=== PATIENT | female | born 1960 | race Caucasian/White ===

== ENCOUNTER 2017-07-23 13:53 | Inpatient (IN) | payer OTHER ==
[~2017-07-23] VITALS: Ht 175.3 cm; Wt 143.6 kg
--- NOTE | ~2017-07-23 | 2DMMODE ---
[facility] [address] [place] [address] 2 D/M-MODE ECHOCARDIOGRAM Name: RICOIKE Lopez Room #: 210-P [facility] IN ..#: [id number] Admission: 07/23/17 Attend Phys: James Orosco, Discharge: Date of : 62 Date of Service: 07/26/17 1311 Report #: [id number] THIS REPORT FOR: //name// APPROVED REPORT Study performed: 07/26/2017 09:19:27 EXAM: Comprehensive 2D, Doppler, and color-flow Echocardiogram Patient Location: Echo lab Room #: 210 Status: routine BSA: 2.51 HR: 75 bpm BP: 88/56 mmHg Other Information Study Quality: Adequate Indications Congestive Heart Failure Dyspnea 2D Dimensions RVDd: 46.32 mm LVEF(%): 22.32 (>50%) IVSd: 9.72 (7-11mm) LVOT Diam: 19.78 (18-24mm) LVDd: 65.34 mm PWd: 12.66 (7-11mm) Ascending Ao: 34.67 (22-36mm) LVDs: 58.49 (25-40mm) Aortic Root: 31.45 mm IVC: 21.00 mm English's LVEF: 22.32 % Volumes Left Atrial Volume (Systole) Single Plane 4CH: 83.98 mL Single Plane 2CH: 97.54 mL LA ESV Index: 40.00 mL/m2 Aortic Valve AoV Peak Juan.: 1.20 m/s AO Peak Gr.: 5.71 mmHg LVOT Max P.62 mmHg LVOT Max V: 1.07 m/s MARIE Vmax: 2.76 cm2 Mitral Valve E/A Ratio: 0.9 MV Decel. Time: 202.21 ms [facility] [place] [address] 2 D/M-MODE ECHOCARDIOGRAM Name: IKE GÓMEZ Room #: 210-[facility] IN .R.#: [id number] Admission: 07/23/17 Attend Phys: James Orosco, Discharge: Date of : 62 Date of Service: 07/26/17 1311 Report #: [id number] MV E Max Juan.: 1.03 m/s MV A Juan.: 1.14 m/s MV PHT: 58.64 ms IVRT: 55.36 ms Pulmonary Valve PV Peak Juan.: 0.60 m/s PV Peak Gr.: 1.43 mmHg Pulmonary Vein P Vein S: 0.39 m/s P Vein A: 0.30 m/s P Vein D: 0.47 m/s P Vein A Dur.: 124.6 msec P Vein S/D Ratio: 0.83 Tricuspid Valve TR Peak Juan.: 2.70 m/s TR Peak Gr.: 29.27 mmHg PA Pressure: 39.00 mmHg Left Ventricle Left ventricle is dilated. Mild concentric left ventricular hypertrophy. Left ventricular ejection fraction is severely decreased. LVEF is 30%. Grade I - abnormal relaxation pattern. Right Ventricle Right ventricle is dilated. Right ventricular systolic function is grossly normal. Atria Left atrium is dilated. Right atrium is dilated. Aortic Valve The aortic valve is normal in structure. No aortic regurgitation is present. There is no aortic valvular stenosis. Mitral Valve The mitral valve is normal in structure. Mild to moderate mitral regurgitation. No evidence of mitral valve stenosis. Tricuspid Valve The tricuspid valve is normal in structure. There is mild tricuspid regurgitation.Estimated PAP 40 mmHg. There is mild pulmonary hypertension. Pulmonic Valve The pulmonary valve is normal in structure. There is no pulmonic valvular regurgitation. [address] [address] 2 D/M-MODE ECHOCARDIOGRAM Name: IKE GÓMEZ Room #: 210-P [facility] IN .#: [id number] Admission: 07/23/17 Attend Phys: James Orosco, Discharge: Date of : 62 Date of Service: 07/26/17 1311 Report #: [id number] Great Vessels The aortic root is normal in size. IVC is dilated and collapses >50% with inspiration. Pericardium There is no pericardial effusion. <Conclusion> Left ventricular ejection fraction is severely decreased. LVEF is 30%. Grade I diastolic dysfunction Both atria are dilated. The aortic valve is normal in structure. No aortic regurgitation or stenosis The mitral valve is normal in structure. Mild to moderate mitral regurgitation. There is mild tricuspid regurgitation. Estimated PAP 40 mmHg. No pericardial effusion <ELECTRONICALLY SIGNED> By: Denton Beckford MD, FACC 07/26/171310 10 10 Denton Beckford MD, FACC /INF
--- NOTE | ~2017-07-23 | HC ---
[facility] [place] [address] CONSULTATION Name: IKE GÓMEZ Room #: 210-P ADM IN .R.#: [id number] Admission: 07/23/17 Attend Phys: James Orosco MD Discharge: Date of : 62 Report #: [id number] THIS REPORT FOR: //name// CC: James Orosco [facility] physician/PCP DATE OF SERVICE: 07/23/2017 HISTORY OF PRESENT ILLNESS: The patient is a 57-year-old female who was admitted, transferred from [facility] Emergency Room where she had progressive dyspnea and shortness of breath. She has been treated for what sounds like bronchitis symptoms for the last month or so, and sees Chris Wellington who is a PA in Dr. Vicente is office. She does not have any cardiac history, but subsequently found to have marked cardiomegaly, some cephalization on x-ray and some relative hypoxemia. She takes no cardiovascular meds. Has not had a history of hypertension or hypercholesterolemia, and certainly no coronary history. She denies any chest pain, but there is palpitations and racing heart on a nightly basis. This is also associated with nausea and some anorexia. Although she is morbidly obese, there has been some weight loss. There has been no night sweats or fevers. She has had 3 rounds of antibiotics. A very remote smoker. PAST MEDICAL HISTORY: Positive for the morbid obesity, some anxiety, depression, some reflux, DJD, prior right ankle and left foot fracture. There has been borderline hypertension. ALLERGIES: No known drug allergies. HOME MEDICATIONS: Flonase at night, Meloxicam, mirtazapine, Paxil 30 and Zantac. SOCIAL HISTORY: She is . No alcohol or tobacco. Eight children. Three left at home. She is active, but does not exercise. FAMILY HISTORY: Negative for any premature coronary disease. REVIEW OF SYSTEMS: Essentially negative, except for just the marked PND and orthopnea. She sleeps up in a chair at night; and this chronic cough which has been occurring for the last month. LABORATORY DATA: H and H is 15 and 47, white count 10.9, creatinine 1.3. AST 41 ALT 87, alk phos 155. BNP is 11,244. Lipids favorable. Cholesterol 139, LDL 85. TSH is elevated at 4.755, may be consistent with a hypothyroid state. UA was negative. IMAGING DATA: Chest x-ray was cardiomegaly. [facility] [address] [place] [address] CONSULTATION Name: IKE GÓMEZ Room #: 210-P [facility] IN [facility].#: [id number] Admission: 07/23/17 Attend Phys: James Orosco MD Discharge: Date of : 62 Report #: [id number] PHYSICAL EXAMINATION: VITAL SIGNS: Blood pressure 114/84, pulse is 90 and regular. HEENT: Eyes reveal xanthelasmas. Pharynx is clear. NECK: Shows preserved upstrokes. There is a trace of JVD. LUNGS: Diminished in the bases. CARDIAC: Borderline tachycardic. S1, S2. ABDOMEN: Obese. There is some slight tenderness in the epigastric and right upper quadrant, although I did not palpate the liver edge. EXTREMITIES: Reveal trace edema. Distal pulses were intact. NEUROLOGIC: Nonfocal. SKIN: Warm and dry without xanthoma or ulcer. MUSCULOSKELETAL: Valgus deformity of her knees. I did not ambulate her. ASSESSMENT: 1. Acute systolic heart failure (with cardiomegaly). 2. Hypertension. 3. Morbid obesity. 4. Suspected hypothyroidism with elevated TSH. 5. Reflux. RECOMMENDATIONS AND PLAN: I agree with the Lasix IV b.i.d., in addition of carvedilol vasodilating beta-michael and losartan for afterload reduction. Presumably would also benefit from addition of Aldactone. We will continue the diuresis, daily weights, fluid and salt restriction. I will obtain abdominal ultrasound in the a.m.; an echo Doppler probably on Tuesday morning, this is now Tuesday night. We will do daily weights. She has some elevated liver function tests of unclear etiology, possibly passive congestion, but we will get abdominal ultrasound in the a.m. The EKG has some nonspecific changes. We will follow with you. Thank you for asking me to assist in the care of this patient. <ELECTRONICALLY SIGNED> By: Connor Quiñones MD, FACC 07/26/17 0912 2109 1221 Connor Quiñones MD, FACC /nt
--- NOTE | ~2017-07-23 | CATHLAB ---
[facility] [address] [place] [address] INVASIVE PROCEDURE REPORT Name: IKE GÓMEZ Room #: 210-P [facility] IN [facility].#: [id number] Admission: 07/23/17 Attend Phys: James Orosco, Discharge: 07/27/17 Date of : 62 Date of Service: 07/27/171811 Report #: [id number] THIS REPORT FOR: //name// APPROVED REPORT Patient Details Patient Status: In-Patient Room #: The patient is a 57 year-old female Event Personnel Connor Quiñones Certified Orthoptist, Swapnil Gonzalez RN, Destiny Heath Sandifer, David Monitor Procedures Performed Art Access - R femoral artery* Bladimir Access - L femoral vein Right and Left Heart Cath w/or w/o Coronarie [id number] [facility] Hemostasis w/ Mynx 42524 Initial Mod Sed Same Phys/QHP Gr5y [id number] Procedure Narrative The patient was brought urgently to the Cardiac Catheterization Laboratory and was prepped and draped in a sterile manner. The Right Groin^ was infiltrated with 1% Lidocaine subcutaneous anesthesia. A PINNACLE 6FR Sheath #[id number] sheath was inserted into the RFA^. Coronary angiography was performed using coronary diagnostic catheters. The right coronary system was accessed and visualized with a JR 4 catheter. The left coronary system was accessed and visualized with a JL 4 catheter. The left ventricle was accessed and visualized with a Pigtail catheter. Left ventricular/Aortic Valve gradient assessed via catheter pullback. Left ventriculogram was performed in 30 degree projection. Pre-demployment femoral angiogram was performed . Closure device was deployed with a 6 Fr Mynx. The patient tolerated the procedure well and there were no complications associated with the procedure. There was no hematoma. Intraoperative Conscious Sedation Sedation start time: 08:23 Case end Time: 08:45 Fentanyl 50.0 mcg Versed 2.0 mg Fluoro Time: 4.00 minutes Dose: 619 mGy Contrast Type and Amount: Visipaque 90 ml Hemodynamics The right atrial mean pressure is 9 mmHg. The right ventricular [facility] [address] [place] [address] INVASIVE PROCEDURE REPORT Name: GÓMEZIKE Room #: 210-P [facility] IN [facility].#: [id number] Admission: 07/23/17 Attend Phys: James Orosco, Discharge: 07/27/17 Date of : 62 Date of Service: 07/27/17 1812 Report #: [id number] pressure is 45/11 mmHg. The pulmonary artery pressure is 39/19 mmHg with a mean of 28 mmHg. The mean pulmonary capillary wedge pressure is 13 mmHg. The aortic pressure is 106/75 mmHg with a mean of 87 mmHg. The left ventricular pressure is 109/11 mmHg with a mean of mmHg. The left ventricular end diastolic pressure is 22 mmHg. Conclusion #1 mildly severe global hypokinesis EF 25-30% with mild to moderate MR #2 coronary anatomy wide patency and a left dominant system there is no occlusive disease noted #3 successful right heart catheterization with hemodynamics and cardiac output as stated above Recommendations and plan or continue aggressive risk factor modification fluid sodium restriction continue beta michael afterload reduction Aldactone daily weights weight loss all strongly indicated and recommended here Follow-up in our [facility] doctor Silvia in August No lifting for 48 hours no line tub [employer] or [employer]omas for a week <ELECTRONICALLY SIGNED> By: Connor Quiñones MD, FACC 07/27/171811 11 11 Connor Quiñones MD, FACC /INF
--- NOTE | ~2017-07-23 | HC ---
[facility] [place] [address] CONSULTATION Name: IKE GÓMEZ Room #: 210-P ADM IN M.R.#: [id number] Admission: 07/23/17 Attend Phys: James Orosco MD Discharge: Date of : 62 Report #: [id number] THIS REPORT FOR: //name// CC: James Orosco [facility] physician/PCP Ike KIDD DATE OF SERVICE: 07/24/2017 PRIMARY CARE PROVIDER: Ms. Ike Hernandez. She is a nurse practitioner. REFERRAL PHYSICIAN: James Orosco MD. REASON FOR REFERRAL: Dyspnea and profound fatigue. HISTORY OF PRESENT ILLNESS: The patient is a 57-year-old white female who was transferred from [facility] Emergency Room for evaluation of progressive dyspnea, shortness of breath and profound fatigue. A pulmonary consultation was requested. The patient states that she has been in usual state of health until around summer of this year when the symptoms started. Most notably, she states that she just did not feel good, primarily fatigue, which has been progressively worsening over time. Over the past month, she has noted increasing dyspnea even at rest. Around February of this past year, she has had left leg pain while shopping at [employer]. She had diagnostic workup, which included an arterial Doppler, which was said to be normal. MRI was performed of back for evaluation of possible sciatica. She was found to have hemangioma involving L1. She was seen by specialist and I believe a neurologist, who told her that this does not need any further treatment intervention. Other complaints include persistent nausea, vomiting for the past month or so. She has noted orthopnea for the past month along with palpitations. She has smoked for about 10 years, quit 25 years ago. She denies any past history of chronic lung disease. She has also been heavy for many years. Her weight during this hospital stay was 320 pounds. She stands 5 feet 9 inches tall. She was told that she does not snore, but does have trouble with daytime fatigue and sleepiness. She retires to bed about 9:00 p.m., awakens at 6:00 to 7:00 a.m., usually tired, and she would take naps as she could. More recently, she has had lot of social issues. Her father was diagnosed with [facility] [address] [place] [address] CONSULTATION Name: IKE GÓMEZ Room #: 210-[facility] IN .R.#: [id number] Admission: 07/23/17 Attend Phys: James Orosco MD Discharge: Date of : 62 Report #: [id number] stage IV pancreatic cancer along with lung cancer. He is being transitioned into hospice care. Her mother with pancreatic cancer some time ago. Otherwise, she denies any febrile illness, night sweats or chills, chest pain or productive cough. She denies any recent weight loss. 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 PAST MEDICAL HISTORY: As mentioned above including L1 hemangioma, obesity, past right ankle fracture along with left foot fracture. She has DJD. 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 ALLERGIES: None to medications. HOME MEDICATIONS: Include Flonase, meloxicam, mirtazapine, Paxil, Zantac. FAMILY HISTORY: As mentioned above, father diagnosed with stage IV pancreatic cancer, along with lung cancer. Mother . She also has a history of pancreatic cancer. SOCIAL HISTORY: She is , with 8 children. Tobacco history as mentioned above. She denies any alcohol use. 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 REVIEW OF SYSTEMS: As mentioned above. Otherwise denies any headaches, seizures, syncope. Denies any chest pain. Denies any hematemesis, hematochezia, or melena. Denies any dysuria, extremity weakness or numbness. Of note, more recently, along with orthopnea, she has had trouble with cough. PHYSICAL EXAMINATION: GENERAL: She is awake, alert, in no apparent distress. VITAL SIGNS: Temperature is 97.5 degrees Fahrenheit, pulse is 77, respiratory rate is 18, blood pressure 122/82 mmHg, saturation is 93% on room air. HEENT: Normocephalic, atraumatic. NECK: Supple, without any lymphadenopathy or thyromegaly. CHEST: Breath sounds are clear bilaterally without any rales or wheezes. CARDIOVASCULAR: Normal S1, S2. There are no murmurs or gallop. There is no JVD. There is no carotid bruit. Pulses are 2+/4+ bilaterally. ABDOMEN: Obese and soft, nontender. No organomegaly or masses felt. GENITOURINARY AND RECTAL: Deferred. EXTREMITIES: No edema, cyanosis or clubbing. LABORATORY DATA: Chest x-ray shows cardiomegaly without obvious infiltrates. D-dimer was 2.1, BNP is 11,200. TSH is 4.7. Abdominal ultrasound shows mild hepatic steatosis, mild splenomegaly. [facility] [address] [place] [address] CONSULTATION Name: IKE GÓMEZ Room #: 210-P [facility] IN [place].#: [id number] Admission: 07/23/17 Attend Phys: James Orosco MD Discharge: Date of : 62 Report #: [id number] IMPRESSION: 1. Progressive fatigue, dyspnea and cough in this 57-year-old white female. She also complains of orthopnea and palpitations. She is morbidly obese. She has remote history of left leg pain. It appears that patient may have a component of heart failure. Other considerations include underlying sleep disordered breathing. With a history of leg pain, cannot rule out possibility of venous thromboembolic disease. It appears that profound fatigue appears to be a biggest complaint. I note that the TSH is slightly elevated. She will eventually need sleep evaluation as an outpatient. 2. Cardiomegaly with suspected acute systolic heart failure. 3. Profound fatigue, morbid obesity, daytime sleepiness. Sleep related breathing disorder is suspected. 4. Remote history of tobacco use, quit 25 years ago. She had a pulmonary function test this past Tuesday. Her symptoms does not suggest an acute exacerbation of asthma or chronic obstructive pulmonary disease at this time. 5. Remote history of left leg pain. Doppler ultrasound will be helpful to rule out deep venous thrombosis. 6. Persistent nausea, vomiting, felt to be related to gastroesophageal reflux disease. RECOMMENDATIONS AND DISCUSSION: From pulmonary standpoint, we will do an overnight oximetry study. She will need an outpatient sleep study once she is clinically stable. We will review PFTs when available. We will obtain a bedside spirometry in the morning. Check leg Doppler ultrasound involving history of left leg pain. We will await the results of the echocardiogram. Agree with current management. Baseline arterial blood gas will also be obtained. <ELECTRONICALLY SIGNED> By: Eduardo Uriostegui MD 07/26/17 1529 1344 0217 Eduardo Uriostegui MD /nt
--- NOTE | ~2017-07-23 | EKG ---
[place] [address] [facility] [place] [address] ELECTROCARDIOGRAM REPORT Name: IKE GÓMEZ Room #: 210-P ADM IN M.R.#: [id number] Admission: 07/23/17 Attend Phys: James Orosco MD Discharge: Date of : 62 Report #: [id number] THIS REPORT FOR: //name// [facility] Test Date: 2017-07-24 Test Time: 08:24:53 Pat Name: IKE GÓMEZ Department: Room: 210 P Gender: F Laminator: RAJAT : 1960 Requested By: Scott Crowell Order Number: [id number] MD: Seun Mascorro Measurements Intervals [place] Rate: 77 P: 16 PA: 167 QRS: -49 QRSD: 138 T: 108 QT: 429 QTc: 486 Interpretive Statements Sinus rhythm Prominent P waves, nondiagnostic Left bundle branch block No previous ECG available for comparison Electronically Signed On 07-24-2017 11:07:41 CDT by Seun Mascorro [email or web address] <ELECTRONICALLY SIGNED> By: Seun Mascorro MD 07/24/17 1107 3 3 Seun Mascorro MD /ALFONSO
--- NOTE | ~2017-07-23 | EKG ---
[place] [address] [facility] [place] [address] ELECTROCARDIOGRAM REPORT Name: IKE GÓMEZ Room #: 210-P ADM IN M.R.#: [id number] Admission: 07/23/17 Attend Phys: James Orosco MD Discharge: Date of : 62 Report #: [id number] THIS REPORT FOR: //name// [facility] Test Date: 2017-07-24 Test Time: 08:23:43 Pat Name: IKE GÓMEZ Department: Room: 210 P Gender: F [employer] Department Worker: RAJAT : 1960 Requested By: Connor Quiñones Order Number: [id number] MD: Seun Mascorro Measurements Intervals [place] Rate: 80 P: 14 MO: 170 QRS: -49 QRSD: 138 T: 103 QT: 437 QTc: 505 Interpretive Statements Sinus rhythm Consider right atrial enlargement Left bundle branch block No previous ECG available for comparison Electronically Signed On 07-24-2017 11:07:27 CDT by Seun Mascorro [email or web address] <ELECTRONICALLY SIGNED> By: Seun Mascorro MD 07/24/17 1107 0823 2 Seun Mascorro MD /ALFONSO
[2017-07-23 16:50] VITALS: BP 119/93
[2017-07-23] MEDS ORDERED: LUNESTA2 MG PO (17:02)
[2017-07-23] MEDS ORDERED: MOBIC15 MG PO (17:03)
[2017-07-23] MEDS ORDERED: PAXIL10 MG PO (17:04)
[2017-07-23] MEDS ORDERED: REMERON15 M2 PO (17:04)
[2017-07-23] MEDS ORDERED: ZANTAC 150MG T150 MG PO (17:04)
[2017-07-23 17:51] VITALS: BP 119/63
[2017-07-23 18:17] LABS: URINE BILIRUBIN NEGATIVE (Negative); URINE BLOOD NEGATIVE (Negative); URINE COLOR YELLOW; URINE GLUCOSE-RANDOM* NEGATIVE (Negative); URINE KETONES NEGATIVE (Negative); URINE LEUKOCYTES-REFLEX NEGATIVE (Negative); URINE PROTEIN (DIPSTICK) NEGATIVE (Negative); URINE UROBILINOGEN 0.2 E.U./dl (0.2-1.0)
[2017-07-23 18:17] LABS: ABSOLUTE NEUTROPHILS 6.8 thou/uL (1.4-8.2); BASOPHILS 1.4 % (0.0-2.0); EOSINOPHILS 4.2 % (0.0-3.0); HEMATOCRIT 47.6 % (37.0-47.0); HEMOGLOBIN 15.7 gm/dL (12.0-15.0); LYMPHOCYTES 25.9 % (24.0-44.0); MCH 28.5 pg (26.0-34.0); MCHC 32.9 g/dL (28.0-37.0); MCV 86.5 fL (80.0-100.0); MONOCYTES 6.6 % (1.0-8.0); PLATELET COUNT 248 thou/uL (150-400); POLYS 61.9 % (36.0-66.0); RDW 14.8 % (10.5-14.5); WBC 10.9 thou/uL (4.0-11.0)
[2017-07-23 18:18] LABS: MANUAL DIFF NO
[2017-07-23 18:32] LABS: CHOLESTEROL 139 mg/dL (<200); HDL CHOLESTEROL 34 mg/dL (>40); LDL CHOLESTEROL 85 mg/dL (<100); TC:HDL 4.1 Ratio (Not establshd); TRIGLYCERIDE 104 mg/dL (<150); VLDL 21 mg/dL (<40)
[2017-07-23 18:34] LABS: ALBUMIN 3.9 g/dL (3.4-5.0); ALKALINE PHOSPHATASE 155 U/L (46-116); ANION GAP 12 mmol/L (7-16); BUN 15 mg/dL (7-18); CALCIUM 9.4 mg/dL (8.5-10.1); CHLORIDE 105 mmol/L (98-107); CO2 25 mmol/L (21-32); CREATININE 1.3 mg/dL (0.6-1.0); GLUCOSE 121 mg/dL (74-106); POTASSIUM 3.7 mmol/L (3.5-5.1); SGOT 41 U/L (15-37); SGPT 87 U/L (30-65); SODIUM 142 mmol/L (136-145); TOTAL BILIRUBIN 2.1 mg/dL (<0.1-1.0); TOTAL PROTEIN 6.4 g/dL (6.4-8.2); TROPONIN-I < 0.04 ng/mL (<0.06)
[2017-07-23 19:45] VITALS: BP 113/84
[2017-07-23 23:39] VITALS: BP 128/83
[2017-07-24] VITALS (7 sets, daily range): BP systolic 77–134; BP diastolic 42–96
[2017-07-24 15:47] LABS: ABG SAMPLE TYPE ARTERIAL; BE(vivo) 5.6 mmol/L (-2 to +3); HCO3 29.8 mmol/L (22.0-26.0); LACTATE 1.26 mmol/L (0.5-2.0); O2(CT) 21.2 mL/dL (15.0-23.0); O2Hb 90.6 % (92.0-98.0); PCO2 41.5 mmHg (35.0-45.0); PO2 60.2 mmHg (80.0-100.0); pH 7.474 (7.360-7.450); sO2 92.6 % (92.0-98.0); tCO2 31.1 mmol/L (24.0-30.0)
[2017-07-24 18:48] LABS: ABG COMMENT NO COMPLICATIONS.; STICK SITE R.RADIAL
[2017-07-25 04:15] VITALS: BP 99/67
[2017-07-25 04:21] LABS: ABSOLUTE NEUTROPHILS 4.7 thou/uL (1.4-8.2); EOSINOPHILS 10.4 % (0.0-3.0); HEMATOCRIT 47.3 % (37.0-47.0); HEMOGLOBIN 15.9 gm/dL (12.0-15.0); MCHC 33.5 g/dL (28.0-37.0); MCV 86.5 fL (80.0-100.0); MONOCYTES 9.1 % (1.0-8.0); PLATELET COUNT 206 thou/uL (150-400); POLYS 57.5 % (36.0-66.0); RBC 5.47 mil/uL (4.20-5.00); RDW 14.8 % (10.5-14.5); WBC 8.2 thou/uL (4.0-11.0)
[2017-07-25 04:27] LABS: CALCIUM 9.6 mg/dL (8.5-10.1); CREATININE 1.4 mg/dL (0.6-1.0); MANUAL DIFF NO; POTASSIUM 3.3 mmol/L (3.5-5.1)
[2017-07-25 07:10] VITALS: BP 92/56
[2017-07-25 11:10] VITALS: BP 90/50
[2017-07-25 19:36] VITALS: BP 85/61
[2017-07-25 23:38] VITALS: BP 89/60
[2017-07-26 04:19] VITALS: BP 95/62
[2017-07-26 07:05] VITALS: BP 88/56
[2017-07-26 09:32] LABS: CALCIUM 9.8 mg/dL (8.5-10.1); CREATININE 1.5 mg/dL (0.6-1.0)
[2017-07-26 11:50] VITALS: BP 97/69
[2017-07-26 16:10] VITALS: BP 102/82
[2017-07-26 20:31] VITALS: BP 115/75
[2017-07-27 00:41] VITALS: BP 92/55
[2017-07-27 03:32] LABS: ABSOLUTE NEUTROPHILS 5.5 thou/uL (1.4-8.2); BASOPHILS 1.8 % (0.0-2.0); EOSINOPHILS 8.7 % (0.0-3.0); HEMATOCRIT 50.4 % (37.0-47.0); HEMOGLOBIN 16.7 gm/dL (12.0-15.0); MCH 28.5 pg (26.0-34.0); MCHC 33.1 g/dL (28.0-37.0); MCV 86.1 fL (80.0-100.0); MONOCYTES 9.2 % (1.0-8.0); PLATELET COUNT 257 thou/uL (150-400); POLYS 58.3 % (36.0-66.0); RBC 5.86 mil/uL (4.20-5.00); RDW 14.9 % (10.5-14.5); WBC 9.5 thou/uL (4.0-11.0)
[2017-07-27 03:34] LABS: MANUAL DIFF NO
[2017-07-27 03:38] LABS: CALCIUM 9.7 mg/dL (8.5-10.1); CREATININE 1.5 mg/dL (0.6-1.0); POTASSIUM 3.5 mmol/L (3.5-5.1)
[2017-07-27 04:57] LABS: APTT 28.4 Seconds (24.5-32.8); PROTIME 10.5 Seconds (9.3-11.4)
[2017-07-27 05:08] VITALS: BP 94/64
[2017-07-27 05:24] LABS: LARGE PLATELETS OCCASIONAL
[2017-07-27] MEDS ORDERED: COREG6.25 MG PO (09:55)
[2017-07-27] MEDS ORDERED: KLOR-CON M2020 MEQ PO (09:56)
[2017-07-27] MEDS ORDERED: ASA5UEC PO (09:56)
[2017-07-27] MEDS ORDERED: COZAAR 25 MG TA25 M1 PO (09:56)
[2017-07-27] MEDS ORDERED: SYNTHROID25 MCG PO (09:57)
[2017-07-27] MEDS ORDERED: DEMADEX 2020 MG/1 TA PO (09:57)
[2017-07-27 10:51] VITALS: BP 121/84
[2017-07-27 11:42] VITALS: BP 105/74
[2017-07-27 14:31] VITALS: BP 121/84
[2017-07-27 14:34] VITALS: BP 121/84
== END 2017-07-27 16:00 | disposition home or self-care (01) | DRG 286 ==
LOC: 2N 13:53 → ENTRNSPT 07-27 15:34 → EDTRNSPTSTS 07-27 15:38 → 2N 07-27 16:00
PROVIDERS: Family Medicine; Internal Medicine Cardiovascular Disease; Internal Medicine Endocrinology, Diabetes & Metabolism; Internal Medicine Pulmonary Disease; Nurse Practitioner Adult Health
PROC: 4A023N8 Measurement of Cardiac Sampling and Pressure, Bilateral, Percutaneous Approach (ICD-10-PCS; principal; 2017-07-27)
PROC: B31S1ZZ Fluoroscopy of Right Pulmonary Artery using Low Osmolar Contrast (ICD-10-PCS; principal; 2017-07-27)
PROC: B2111ZZ Fluoroscopy of Multiple Coronary Arteries using Low Osmolar Contrast (ICD-10-PCS; principal; 2017-07-27)
PROC: B2151ZZ Fluoroscopy of Left Heart using Low Osmolar Contrast (ICD-10-PCS; principal; 2017-07-27)
DX: I11.0 Hypertensive heart disease with heart failure (principal); J96.01 Acute respiratory failure with hypoxia; Z68.42 Body mass index [BMI] 45.0-49.9, adult; N17.9 Acute kidney failure, unspecified; E66.01 Morbid (severe) obesity due to excess calories; F41.9 Anxiety disorder, unspecified; F32.9 Major depressive disorder, single episode, unspecified; M19.90 Unspecified osteoarthritis, unspecified site; I50.23 Acute on chronic systolic (congestive) heart failure; E03.9 Hypothyroidism, unspecified; K76.0 Fatty (change of) liver, not elsewhere classified; I42.9 Cardiomyopathy, unspecified; Z87.81 Personal history of (healed) traumatic fracture; Z87.891 Personal history of nicotine dependence
CPT/HCPCS: 10797